=== PATIENT | female | born 1940 | race Caucasian/White ===

== ENCOUNTER → 2018-11-13 | Outpatient (CLI) | payer MEDICARE ==
--- NOTE | 2018-11-13 16:41 | XCELERA REPORT ---
[address] [place] [facility] [address] Lower Extremity Venous Evaluation Procedure: Color flow and duplex imaging of the veins of the right lower extremity as well as the left Common Femoral vein. Right Sided Venous Evaluation Normal vessel filling wall to wall, compression and augmentation as well as Colour flow down to the infrageniculate veins. Left Sided Venous Evaluation The left common femoral vein is fully compressible. Spontaneous and phasic flow is present in the left common femoral vein. Interpretation Summary No duplex evidence of DVT or obstruction in the right lower extremity nor in the left Common Femoral vein. Name: GARY FLOWER Age: 78 yrs Gender: Female : 1940 Patient Status: Outpatient Patient Location: Study Date: 11/13/2018 01:04 PM Reason For Study: RLE SWELLING Ordering Physician: KYLER PALACIOS Performed By: Danilo Vidal : KYLER PALACIOS > Aryan Chairez
== END ==
LOC: SP 11:46
PROVIDERS: ATTEND Nurse Practitioner Family
DX: R22.41 Localized swelling, mass and lump, right lower limb (principal)
CPT/HCPCS: 93971

== ENCOUNTER → 2018-11-24 | Outpatient (CLI) | payer MEDICARE ==
--- NOTE | 2018-11-24 20:22 | XCELERA REPORT ---
[address] [address] Transthoracic Echocardiogram Report Name: GARY FLOWER Age: 78 yrs Gender: Female : 1940 Patient Status: Outpatient Patient Location: SP Study Date: 11/24/2018 11:07 AM Height: 63 in Weight: 180 lb BSA: 1.8 m2 Reason For Study: A FIB Ordering Physician: KYLER PALACIOS Performed By: Danilo Vidal Interpretation Summary Mod. mitral annulus calcification, with no MS, no MVP, but small calcified vegetation on AML, with trace MR and no LA enlargement.(MILAD 29.2) Calcified aortic root with no enlargement, mild non-stenotic calcific aortic valvular disease, no AR, severe calcium deposits in vicinity of LM orifice, Mild concentgric LVH 12 mm with normal LVEF70% and LV diastolic dysfunction, restrictive disease, no regional wall motion abnormality, no LV enlargement. Mild TR with no pulm hypertension, RVSP 28mm Hg, normal IVC, no RH enlargement. small anterior pericardial effusion. MMode/2D Measurements & Calculations RVDd: 2.5 cm LVIDd: 4.0 cm FS: 34.7 % Ao root diam: 2.8 cm IVSd: 1.2 cm LVIDs: 2.6 cm EDV(Teich): 71.4 ml LVPWd: 1.2 cm ESV(Teich): 25.4 ml Ao root area: 6.1 cm2 LA dimension: 4.5 cm EF(Teich): 64.4 % Doppler Measurements & Calculations MV E max valentina: MV dec time: Ao V2 max: AI max [place]: 97.6 cm/sec 0.22 sec 146.8 cm/sec 100.3 cm/sec MV A max valent[place]: Ao max P.6 mmHg AI max P.0 mmHg 72.9 cm/sec AI dec slope: MV E/A: 1.3 431.4 cm/sec2 AI P1/2t: 68.1 msec LV V1 max PG: PA V2 max: PI end-d valentina: TR max valentina: 4.2 mmHg 55.9 cm/sec 101.6 cm/sec 248.4 cm/sec LV V1 max: PA max PG: TR max P.7 mmHg 102.6 cm/sec 1.3 mmHg AV P1/2t-pr_phl: 68.1 msec I WMSI = 1.00 % Normal = 100 Segments Size X - Cannot 2 - 4 - 1-2 small Interpret 1 - Normal Hypokinetic 3 - AkineticDyskinetic 3-5 moderate 5 - 6-14 large Aneurysmal 15-16 diffuse : KYLER PALACIOS > Alex Fletcher
== END ==
LOC: SP 10:49
PROVIDERS: ATTEND Nurse Practitioner Family
DX: I48.0 Paroxysmal atrial fibrillation (principal)
CPT/HCPCS: 93306